=== PATIENT | female | born 1995 | race Caucasian/White ===

== ENCOUNTER 2018-07-12 18:43 | Emergency (ER) | payer MEDICAID ==
[~2018-07-12] VITALS: Ht 162.6 cm; Wt 79.0 kg
[~2018-07-12 18:43] MED LIST: MECL-111 PO; ONDA4TAB6 PO; TRIM300C14 PO
[2018-07-12 18:55] VITALS: BP 131/92
[2018-07-12] MEDS ORDERED: IBUP-1985 PO (20:31)
== END 2018-07-12 20:50 | disposition home or self-care (01) ==
LOC: ER 18:43
DX: M79.671 Pain in right foot (principal); Z79.1 Long term (current) use of non-steroidal anti-inflammatories (NSAID); Z79.899 Other long term (current) drug therapy
CPT/HCPCS: 73630; 99284; J7030

== ENCOUNTER 2021-03-09 10:53 | Emergency (ER) | payer MEDICAID ==
[~2021-03-09] VITALS: Ht 162.6 cm; Wt 75.0 kg
[~2021-03-09 10:53] MED LIST changes: +IBUP-1985 PO; -MECL-111 PO; +MECL-159 PO
[2021-03-09 11:04] VITALS: BP 139/94
[2021-03-09] MEDS ORDERED: dexamethasone sod phosphate 10mg/ml inj PO STA (11:30)
[2021-03-09] MEDS ORDERED: AZIT-63 PO (12:34)
[2021-03-09] MEDS ORDERED: PRED20TA PO (12:34)
[2021-03-09] MEDS ORDERED: ALB0.5UD IH (12:34)
== END 2021-03-09 12:51 | disposition home or self-care (01) ==
LOC: ER 10:54
DX: J06.9 Acute upper respiratory infection, unspecified (principal); Z20.822 Contact with and (suspected) exposure to COVID-19; J18.9 Pneumonia, unspecified organism; Z98.890 Other specified postprocedural states; Z79.899 Other long term (current) drug therapy
CPT/HCPCS: 36415; 71045; 87502; 87503; 99284; J1100; U0003

== ENCOUNTER 2022-02-24 17:45 | Emergency (ER) | payer MEDICAID ==
[~2022-02-24] VITALS: Ht 162.6 cm; Wt 65.5 kg
[2022-02-24 19:33] VITALS: BP 134/89
== END 2022-02-24 19:39 | disposition home or self-care (01) ==
LOC: ER 17:47
DX: S76.112A Strain of left quadriceps muscle, fascia and tendon, initial encounter (principal); R53.1 Weakness; M25.562 Pain in left knee; Z98.890 Other specified postprocedural states; Z79.899 Other long term (current) drug therapy; X58.XXXA Exposure to other specified factors, initial encounter; Y93.89 Activity, other specified; Y92.89 Other specified places as the place of occurrence of the external cause; Y99.8 Other external cause status
CPT/HCPCS: 99282